=== PATIENT | male | born 1985 | race Two or more races ===

== ENCOUNTER → 2024-11-01 | Outpatient (CLI) | payer MEDICAID, SELFPAY ==
--- NOTE | 2024-11-01 16:00 | XR_ITS ---
Examination: MRI cervical spine without intravenous contrast Date and time of exam: November 01, 2024 1626 hours INDICATIONS: Neck pain beginning one year ago, radiating to the arms and paresthesias in the arms Technique: Multiple axial and sagittal sections of the cervical spine to been obtained. T2 weighted sagittal sections, TR 3, 270, TE 117 T1-weighted sagittal sections, TR 500, TE 11 T1-weighted axial sections, TR 607, TE 12, axial sections TR 18, TE 27 and T2 weighted transverse sections, TR 3920, TE 122. Findings: Adequate alignment cervical vertebral bodies No cervical fracture Moderate disc narrowing C5-C6 Intact odontoid No localized enlargement cervical cord No cervical syrinx cavity C2-C3 no disc protrusion C3-C4 no disc protrusion C4-C5 2 mm central subarticular osteophyte disc complex C5-C6 4 mm central subarticular osteophyte disc complex indenting the ventral margin cervical cord with advanced bilateral neural foraminal stenosis C6-C7 no disc protrusion C7-T1 no disc protrusion IMPRESSION: C5-C6 4 mm central subarticular osteophyte disc complex, indenting the ventral margin cervical cord with advanced bilateral neural foraminal stenosis
== END | disposition home or self-care (01) ==
LOC: SMRI 11-03 09:50
PROVIDERS: PCP Nurse Practitioner Family; Referring Provider Nurse Practitioner Family; Visit Provider Nurse Practitioner Family
DX: M25.78 Osteophyte, vertebrae (principal); M48.061 Spinal stenosis, lumbar region without neurogenic claudication
CPT/HCPCS: 72141

== ENCOUNTER 2025-09-19 16:34 | Emergency (ER) | payer MEDICAID, SELFPAY ==
[2025-09-19 16:49] VITALS: BP 135/85; PULSE 81; RESP 16; TEMP 36.8; O2SAT 96; BMI 27.1
--- NOTE | 2025-09-19 16:53 | XR_ITS ---
Examination: Abdomen sonogram, Limited Date and time of exam: September 19, 2025, 1705 hours INDICATIONS: Right upper abdominal pain beginning 3 days ago. TECHNIQUE:: Grayscale transabdominal sonographic images upper abdomen FINDINGS: Normal gallbladder. Normal common bile duct 0.3 cm Pancreatic head 2.4 cm Liver 15.5 cm no liver lesions Normal hepatopetal portal venous flow Patent IVC IMPRESSION: Normal gallbladder Normal common bile duct
--- NOTE | 2025-09-19 16:54 | EDRME_ITS ---
Rapid Medical Screening Exam FORMERLY [facility], [facility] Arrival date/time: 09/19/25 16:34 39-year-old male with no known medical history presents to the emergency room with a chief complaint of right upper quadrant abdominal pain and tenderness x 2 days I have greeted and performed a focused initial assessment of this patient. A comprehensive ED assessment and evaluation of the patient, analysis of all test results, and completion of the medical decision making process will be conducted by additional ED providers. Chief Complaint: Abdominal Pain Time Seen by Provider: 09/19/25 16:40 Vital signs: Vital Signs Temperature 98.3 F 09/19/25 16:49 Pulse Rate 81 09/19/25 16:49 Respiratory Rate 16 09/19/25 16:49 Blood Pressure 135/85 H 09/19/25 16:49 Pulse Oximetry (%) 96 09/19/25 16:49 Oxygen Delivery Method Room Air 09/19/25 16:49 Vital signs reviewed by provider: Yes Exam: Right upper quadrant abdominal pain and tenderness that is 8 out of 10 in severity and radiates to the epigastric area of the patient's abdomen. Positive Leos sign Clear bilateral lung sounds Clinical Impression: Cholelithiasis/cholecystitis/gastroenteritis
[2025-09-19 17:17] LABS: Basophils # (Auto) 0.0 Thou/mm3 (0.0-0.2); Basophils % (Auto) 1 % (0-2.5); Eosinophils # (Auto) 0.0 Thou/mm3 (0.0-0.5); Eosinophils % (Auto) 0 % (0-10); Hematocrit 42.6 % (41.0-53.0); Hemoglobin 14.5 g/dL (13.5-16.0); Immature Granulocytes Auto 0.03 Thou/mm3 (0.00-0.00); Lymphocytes # (Auto) 1.7 Thou/mm3 (1.0-4.8); Lymphocytes % (Auto) 23 % (10-50); Mean Corpuscular HGB Conc 34.0 g/dl (31.0-37.0); Mean Corpuscular Hemoglobin 29.3 pg (25.0-35.0); Mean Corpuscular Volume 86 fL (80-100); Monocytes # (Auto) 0.8 Thou/mm3 (0.0-0.8); Monocytes % (Auto) 12 % (0-12); Neutrophils # (Auto) 4.6 Thou/mm3 (1.8-7.7); Neutrophils % (Auto) 64 % (37-80); Nucleated Red Blood Cell # 0.00 Thou/mm3 (0.00-0.00); Nucleated Red Blood Cell % 0 /100 WBC (0); Platelet Count 263 Thou/mm3 (140-440); RDW Standard Deviation 37.5 fL (35.1-43.9); Red Blood Count 4.95 Miln/mm3 (4.50-5.90); White Blood Count 7.1 Thou/mm3 (3.8-10.6)
[2025-09-19 17:31] LABS: Alanine Aminotransferase 23 U/L (10-49); Albumin, Serum 4.9 gm/dL (3.5-5.0); Albumin/Globulin Ratio 2.1 (1.2-2.2); Alkaline Phosphatase 70 U/L (46-116); Anion Gap 11 (7-16); Aspartate Amino Transferase 30 U/L (0-34); BUN/Creatinine Ratio 15 Ratio (12-20); Bilirubin,Total 0.7 mg/dL (0.3-1.2); Blood Urea Nitrogen 18 mg/dL (9-23); Calcium 9.5 mg/dL (8.3-10.6); Calcium (Corrected) 9.5 mg/dL (8.5-10.1); Carbon Dioxide 28.1 mMol/L (20.0-31.0); Chloride 103 mMol/L (98-107); Creatinine (Component) 1.2 mg/dL (0.6-1.3); Estimated Creatinine Clearance 78.5 mL/min (>60); Globulin 2.3 gm/dL (2.3-3.5); Glucose 81 mg/dL (74-106); Lipase 32 U/L (12-53); Osmolality,Calculated 284 (275-295); Potassium 3.8 mMol/L (3.4-5.1); Sodium 142 mMol/L (136-145); Total Protein 7.2 gm/dL (5.7-8.2); eGFR > 60 See Note
[2025-09-19 17:53] LABS: Collection Type, Urine Clean Catch; WBC,Urine 0 /hpf (0-5)
[2025-09-19 18:27] LABS: Bilirubin,Urine Negative (Negative); Blood,Urine Trace (Negative); Clarity,Urine Clear (Clear/Hazy); Color,Urine Yellow (Lt Yel-Yel); Glucose, Urine Negative (Negative); Ketones,Urine Trace (Negative); Leukocyte Esterase,Urine Negative (Negative); Nitrite,Urine Negative (Negative); PH,Urine 5.5 (5.0-7.0); Protein,Urine 1+ (Neg - Trace); RBC,Urine 6 /hpf (0-3); Specific Gravity,Urine 1.041 (1.001-1.035); Squamous Epithelial Cell,Urine < 1 /hpf (0-5); Urobilinogen,Urine Negative mg/dL (0.0-1.0)
[2025-09-19 21:44] VITALS: BP 123/82; PULSE 69; RESP 16; TEMP 36.7; O2SAT 98
--- NOTE | 2025-09-19 22:41 | PC.NURSE ---
PT INFORMED ME THAT HE WILL GO HOME, CANT WAIT NO MORE.
== END 2025-09-19 22:42 | disposition left against medical advice (07) ==
LOC: SERX 20:00
PROVIDERS: Nurse Practitioner Family; Emergency Provider Emergency Medicine
DX: Z53.21 Procedure and treatment not carried out due to patient leaving prior to being seen by health care provider (principal)
CPT/HCPCS: 36415; 76705; 80053; 81001; 83690; 85025; 87077; 87086; 87186; 99283